=== PATIENT | male | born 1965 | race Caucasian/White ===

== ENCOUNTER 2017-12-23 10:26 | Emergency (ER) | payer OTHER ==
[~2017-12-23] VITALS: Ht 188 cm; Wt 145.0 kg
[2017-12-23 10:33] VITALS: BP 143/70; PULSE 77; RESP 20; TEMP 98.4; O2SAT 96
[2017-12-23] MEDS ORDERED: LISI-515 PO (10:45)
--- NOTE | 2017-12-23 10:53 | PD ---
HPI Chief Complaint: Medical Clearance Time Seen by Provider: 10:41 Travel History International Travel<30 days: No Contact w/Intl Traveler<30days: No Traveled to known affect area: No History of Present Illness HPI 52-year-old male with PMH of HTN, DM on a insulin pump presents the ED for evaluation after near syncopal episode today. 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 He was lying on the back with electrodes on his ankles. He was tased for a period of 1-1-1/2 seconds. He states that he did not lose consciousness during this event. However after standing up he became very dizzy. He states he walked to the wall, leaned against it and slumped to the ground. He was evaluated on scene by paramedics who advised that he come to the ED. On arrival he states that he feels "a little out of it " but does not feel as if he is going to faint. He denies headache, dizziness, chest pain, palpitations, shortness of breath, abdominal pain, nausea, vomiting , weakness of the extremities. States he was feeling well before today. Blood glucose was checked on scene and was in the 130s. PFSH Past Medical History Diabetes: Yes Patient Takes Glucophage: No Hypertension: Yes Tetanus Vaccination: < 5 Years Past Surgical History Cholecystectomy: Yes Tonsillectomy: Yes Social History Alcohol Use: No Tobacco Use: No Substance Use: No Allergies-Medications (Allergen,Severity, Reaction): Coded Allergies: No Known Allergies (Unverified , 12/23/17) Reported Meds & Prescriptions Reported Meds & Active Scripts Active Reported Lisinopril 20 Mg Tab 20 Mg PO DAILY Review of Systems Except as stated in HPI: all other systems reviewed are Neg Physical Exam Narrative GENERAL: Well-nourished, well-developed obese white male no acute distress. SKIN: Focused skin assessment warm/dry. HEAD: Normocephalic. Atraumatic. EYES: No scleral icterus. No injection or drainage. NECK: Supple, trachea midline. No JVD or lymphadenopathy. CARDIOVASCULAR: Regular rate and rhythm without murmurs, gallops, or rubs. RESPIRATORY: Breath sounds clear and equal bilaterally. No accessory muscle use. GASTROINTESTINAL: Abdomen soft, non-tender, nondistended. Active bowel sounds. NEUROLOGICAL: Awake and alert. Cranial nerves II through XII intact. Motor and sensory grossly within normal limits. Five out of 5 muscle strength in all muscle groups. Normal speech. MUSCULOSKELETAL: No cyanosis, or edema. Noted to walk with a normal gait. BACK: Nontender without obvious deformity. No CVA tenderness. Data Data Last Documented VS Vital Signs Date Time Temp Pulse Resp B/P (MAP) Pulse Ox O2 Delivery O2 Flow Rate FiO2 12/23/17 10:33 98.4 77 20 143/70 (94) 96 Orders Orders Electrocardiogram (12/23/17 ) Complete Blood Count With Diff (12/23/17 10:51) Basic Metabolic Panel (Bmp) (12/23/17 10:51) Troponin I (12/23/17 10:51) Iv Access Insert/Monitor (12/23/17 10:51) Sodium Chlorid 0.9% 500 Ml Inj (Ns 500 M (12/23/17 11:00) Creatine Kinase (Cpk) (12/23/17 10:53) Ed Discharge Order (12/23/17 12:07) Labs Laboratory Tests Test 12/23/17 10:50 White Blood Count 10.8 TH/MM3 Red Blood Count 5.81 MIL/MM3 Hemoglobin 15.9 GM/DL Hematocrit 46.5 % Mean Corpuscular Volume 79.9 FL Mean Corpuscular Hemoglobin 27.3 PG Mean Corpuscular Hemoglobin Concent 34.2 % Red Cell Distribution Width 14.9 % Platelet Count 226 TH/MM3 Mean Platelet Volume 8.9 FL Neutrophils (%) (Auto) 66.2 % Lymphocytes (%) (Auto) 23.7 % Monocytes (%) (Auto) 7.7 % Eosinophils (%) (Auto) 1.3 % Basophils (%) (Auto) 1.1 % Neutrophils # (Auto) 7.1 TH/MM3 Lymphocytes # (Auto) 2.6 TH/MM3 Monocytes # (Auto) 0.8 TH/MM3 Eosinophils # (Auto) 0.1 TH/MM3 Basophils # (Auto) 0.1 TH/MM3 CBC Comment DIFF FINAL Differential Comment Blood Urea Nitrogen 20 MG/DL Creatinine 0.88 MG/DL Random Glucose 114 MG/DL Calcium Level 9.4 MG/DL Sodium Level 140 MEQ/L Potassium Level 3.9 MEQ/L Chloride Level 104 MEQ/L Carbon Dioxide Level 26.6 MEQ/L Anion Gap 9 MEQ/L Estimat Glomerular Filtration Rate 92 ML/MIN Total Creatine Kinase 120 U/L Troponin I LESS THAN 0.02 NG/ML MDM Medical Decision Making Medical Screen Exam Complete: Yes Emergency Medical Condition: Yes Differential Diagnosis Vasovagal response versus metabolic derangement versus dehydration versus less likely ACS versus less likely rhabdomyolysis versus other Narrative Course 52-year-old male with PMH of HTN, DM on a insulin pump presents the ED for evaluation after near syncopal episode today. 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 Patient became dizzy, slumped to the ground. No LOC. On arrival he states that he feels "a little out of it" but does not feel as if he is going to faint. Blood glucose was checked on scene and was in the 130s. Vitals reviewed. On exam this is an obese white male in no acute distress. No focal neuro deficits. Chest CTAB. Abdomen soft and nontender. IV was established. Patient was administered 0.5 L normal saline. EKG rate 77, sinus rhythm. OH interval 174, QRS 96, QTc 378 ms. Normal axis. No acute ST changes. Reviewed by Dr. Alford. Troponin negative 1. CPK: 120 CBC: No concerning abnormalities. CMP: BUN 20, creatinine 0.88. I suspect the patient had a vasovagal episode. I discussed the results of the workup with the patient. Workman's comp paperwork was completed. He is agreeable to discharge and follow-up with his primary care. He is stable and discharged home. Diagnosis Primary Impression: Vasovagal episode Referrals: Primary Care Physician Patient Instructions: General Instructions, Near Syncope (ED) Additional Instructions: Rest, hydrate. Return to normal, gentle activity as tolerated. Follow-up with primary care provider. Return to the ED for any urgent or emergent medical condition. Disposition: 01 DISCHARGE HOME Condition: Stable Tiffany Palacios December 23, 2017 10:53
[2017-12-23] MEDS ORDERED: SODIUM CHLORID 0.9% 500 ML INJ 500 ML IV ONE (11:00)
[2017-12-23 11:16] LABS: AUTOMATED NEUTROPHIL # 7.1 TH/MM3 (1.8-7.7); BASOPHIL # 0.1 TH/MM3 (0-0.2); BASOPHIL % 1.1 % (0.0-2.0); EOSINOPHIL # 0.1 TH/MM3 (0-0.4); EOSINOPHIL % 1.3 % (0.0-4.0); HEMATOCRIT 46.5 % (39.0-51.0); HEMOGLOBIN 15.9 GM/DL (13.0-17.0); LYMPH % 23.7 % (9.0-44.0); LYMPHOCYTE # 2.6 TH/MM3 (1.0-4.8); MEAN CELL VOLUME 79.9 FL (80.0-100.0); MEAN CORPUSCULAR HEMOGLOBIN 27.3 PG (27.0-34.0); MEAN CORPUSCULAR HGB CONC 34.2 % (32.0-36.0); MEAN PLATELET VOLUME 8.9 FL (7.0-11.0); MONO % 7.7 % (0.0-8.0); MONOCYTE # 0.8 TH/MM3 (0-0.9); NEUT % 66.2 % (16.0-70.0); PLATELET COUNT 226 TH/MM3 (150-450); RED BLOOD COUNT 5.81 MIL/MM3 (4.50-5.90); RED CELL DISTRIBUTION WIDTH 14.9 % (11.6-17.2); WHITE BLOOD COUNT 10.8 TH/MM3 (4.0-11.0)
--- NOTE | 2017-12-23 11:39 | PD ---
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 He is being seen by my PA and I am supervising her. Patient says he is feeling much better at this point. He is getting IV fluid bolus. I looked at his EKG which appeared to be nonspecific without any concerns. There is blood work pending. CBCs back which is within normal limits but CPK and troponin is pending. If those are within normal limit he will be discharged home. In my opinion patient probably had a vasovagal episode Data Data Last Documented VS Orders Orders Electrocardiogram (12/23/17 ) Complete Blood Count With Diff (12/23/17 10:51) Basic Metabolic Panel (Bmp) (12/23/17 10:51) Troponin I (12/23/17 10:51) Iv Access Insert/Monitor (12/23/17 10:51) Sodium Chlorid 0.9% 500 Ml Inj (Ns 500 M (12/23/17 11:00) Creatine Kinase (Cpk) (12/23/17 10:53) Ed Discharge Order (12/23/17 12:07) Labs Laboratory Tests Test 12/23/17 10:50 White Blood Count 10.8 TH/MM3 Red Blood Count 5.81 MIL/MM3 Hemoglobin 15.9 GM/DL Hematocrit 46.5 % Mean Corpuscular Volume 79.9 FL Mean Corpuscular Hemoglobin 27.3 PG Mean Corpuscular Hemoglobin Concent 34.2 % Red Cell Distribution Width 14.9 % Platelet Count 226 TH/MM3 Mean Platelet Volume 8.9 FL Neutrophils (%) (Auto) 66.2 % Lymphocytes (%) (Auto) 23.7 % Monocytes (%) (Auto) 7.7 % Eosinophils (%) (Auto) 1.3 % Basophils (%) (Auto) 1.1 % Neutrophils # (Auto) 7.1 TH/MM3 Lymphocytes # (Auto) 2.6 TH/MM3 Monocytes # (Auto) 0.8 TH/MM3 Eosinophils # (Auto) 0.1 TH/MM3 Basophils # (Auto) 0.1 TH/MM3 CBC Comment DIFF FINAL Differential Comment Blood Urea Nitrogen 20 MG/DL Creatinine 0.88 MG/DL Random Glucose 114 MG/DL Calcium Level 9.4 MG/DL Sodium Level 140 MEQ/L Potassium Level 3.9 MEQ/L Chloride Level 104 MEQ/L Carbon Dioxide Level 26.6 MEQ/L Anion Gap 9 MEQ/L Estimat Glomerular Filtration Rate 92 ML/MIN Total Creatine Kinase 120 U/L Troponin I LESS THAN 0.02 NG/ML MDM Supervised Visit with VICKI: Yes Vira Alford MD December 23, 2017 11:39
[2017-12-23 11:40] LABS: BICARBONATE 26.6 MEQ/L (21.0-32.0); BLOOD UREA NITROGEN 20 MG/DL (7-18); CALCIUM 9.4 MG/DL (8.5-10.1); CREATININE 0.88 MG/DL (0.60-1.30); GLOMERULAR FILTRATION RATE 92 ML/MIN (>89); GLUCOSE,RANDOM 114 MG/DL (74-106)
[2017-12-23 12:00] LABS: CHLORIDE 104 MEQ/L (98-107); SODIUM (NA) 140 MEQ/L (136-145); TROPONIN I LESS THAN 0.02 NG/ML (0.02-0.05)
--- NOTE | 2017-12-25 12:13 | EKG ---
Date Performed: 12/23/2017 Time Performed: 10:53:49 PTAGE: 52 years EKG: Sinus rhythm NONSPECIFIC T-WAVE ABNORMALITY BORDERLINE ECG NO PREVIOUS TRACING DOCTOR: David Charles Interpretating Date/Time 12/25/2017 12:03:25
== END 2017-12-23 12:18 | disposition home or self-care (01) ==
LOC: NEPD 10:26
DX: R55 Syncope and collapse (principal); R94.31 Abnormal electrocardiogram [ECG] [EKG]; I10 Essential (primary) hypertension; E11.9 Type 2 diabetes mellitus without complications; X58.XXXA Exposure to other specified factors, initial encounter; Y93.89 Activity, other specified; Y99.0 Civilian activity done for income or pay; Z79.4 Long term (current) use of insulin; Z79.899 Other long term (current) drug therapy
CPT/HCPCS: 80048; 82550; 84484; 85025; 93005; 96360; 99284; J7040